=== PATIENT | female | born 1930 | race Caucasian/White ===

== ENCOUNTER 2016-10-14 08:00 | Outpatient (CLI) | payer MEDICARE | END 2016-10-14 23:59 | DX: R05 Cough (principal); Z51.81 Encounter for therapeutic drug level monitoring ==

== ENCOUNTER 2016-12-02 14:47 | Outpatient (CLI) | payer MEDICARE | END 2016-12-02 14:48 | disposition home or self-care (01) | DX: S52.552D Other extraarticular fracture of lower end of left radius, subsequent encounter for closed fracture with routine healing (principal) ==